=== PATIENT | female | born 1940 | race Caucasian/White ===

== ENCOUNTER 2020-07-14 08:56 | Day surgery (SDC) | payer OTHER, SELFPAY ==
--- NOTE | 2020-07-07 10:55 | PM.PREOP ---
Pre-operative Note COVID-19 COVID-19 status: Negative Interval Note History & Physical reviewed/Exam performed by Physician: Yes Changes to H&P: No H&P completed within 30 days and has changed as indicated here:: Has back pain, difficulty staying in a chair. Stable for surgery.
--- NOTE | 2020-07-14 07:27 | PM.OP.1 ---
Operative Date/Time/Diagnoses Date of procedure: 07/14/20 Time of procedure: 10:45 Procedure & Clinicians Procedure: Preoperative diagnoses: 1. Right significant nuclear sclerotic and cortical cataract. 2.. Asthma 3. Anxiety 4. History of back fractures 5. Astigmatism which she likes to crack the toric intra-ocular lens. Postoperative diagnoses: 1. Cataract removed by phacoemulsification with placement of a toric posterior chamber intraocular lens. Procedure: Phacoemulsification with posterior chamber intraocular lens implant Surgeon: Mayela Carreon MD Complications: None Specimen: None Implant: [id number] [place] 015 Blood loss: None Anesthesia: Retrobulbar with monitored standby Description of procedure: Patient presents with a complaint of decreased vision due to cataract which is affecting activities of daily living especially at distance. The patient wants surgery to improve vision. She understands the extra risk of surgery and the COVID-19 epidemic and wishes to proceed. She was tested active COVID virus negative prior to the procedure. She has difficulty positioning dosing to multiple previous back fractures. The patient was taken to the operating room and indelible ink thayer were placed at the 90 and 180 degree meridian. She was then given IV sedation. A retrobulbar block consisting of 6 cc of 2% xylocaine without epinephrine mixed half and half with 0.5% Marcaine with 1 cc of hyaluronidase added is placed between the medial and lateral 1/3 of the inferior orbital rim. The eye is manually massaged for 30 sec, prepped using Betadine solution, and draped in the usual sterile fashion. Temporal approach was made, a 1 mm side-port incision was made 90? from the proposed clear corneal incision position. Phenylephrine 1.5% mixed with 1% xylocaine 0.2 cc was placed into the anterior chamber. Viscoat followed by Robert was then placed. A 2.6 mm clear incision with a 2.6 mm blade was placed. A 360 degree capsulorrhexis style capsulotomy was then performed with a cystitome needle on a Healon. Hydrodelineation and hydrodissection were performed. The phacoemulsification unit is introduced, and sculpting notice used to groove the central lens. It is then removed in chopping mode. Epi nucleus is removed with epinuclear mode and irrigation aspiration was used to remove the peripheral cortex. The posterior capsule is polished. The intraocular lens is selected, inspected, power confirmed, and placed in the posterior chamber at the desired meridian of 15?. The wound was stromally hydrated and tested for leaks, there was none and it was left sutureless. Vigamox 0.1 cc was placed into the anterior chamber. Kenalog 0.2 cc was placed in the superior subconjunctival space. A drop of antibiotic and was placed and the eye was patched and shielded. The patient was stable and returned to the recovery room in excellent condition. Dictated by: Mayela Carreon MD Copy to: [facility] Same procedure as scheduled: Yes
[2020-07-14 09:21] VITALS: BP 135/74; PULSE 62; RESP 16; TEMP 36.9; O2SAT 96; BMI 26.4
[2020-07-14] MEDS: PROPARACAINE 0.5% OPHTH SOL 2 DROPS EYE-OP (09:38)
[2020-07-14] MEDS: CATARACT EYE COMPOUND (10 DROPS/SYRINGE) 3 DROPS EYE-OP (09:39)
--- NOTE | 2020-07-14 10:12 | SUR.PREOP ---
Patient standing, stretching, moving around. States that she has a broken back and that the back of the wheelchair is too rounded to her comfort. She asked if she could sit in the firm chair and was given permission.
--- NOTE | 2020-07-14 10:15 | SUR.OPER ---
Supine on eye stretcher, head on extension cradle secured with tape. Arms tucked at sides with blanket. Pillow under knees.
[2020-07-14] MEDS: LIDOCAINE 2% 4 ML, BUPIVACAINE 0.5% (PF) 4 ML, HYALURONIDASE 150 UNIT INJ (11:16)
[2020-07-14] MEDS: PHENYLEPHRINE/LIDOCAINE VIAL (OR) 0.2 ML EYE-OP (11:16)
[2020-07-14] MEDS: TRIAMCINOLONE 50 MG/5 ML VIAL INJ (11:18)
[2020-07-14] MEDS: MOXIFLOXACIN INJ 4 MG/0.8 ML VIAL 0.5 MG EYE-OP (11:18)
[2020-07-14] MEDS: BALANCED SALT IRRIG SOLN NO.2 500 ML, EPINEPHrine 1 MG IRR (11:19)
[2020-07-14] MEDS: ERYTHROMYCIN OPHTH 1 GM OINT 1 APPLIC EYE-RIGHT (11:20)
[2020-07-14 11:48] VITALS: BP 141/81; PULSE 57; RESP 14; TEMP 36.8; O2SAT 98
[2020-07-14 12:04] VITALS: BP 140/82; PULSE 65; RESP 16; TEMP 37.1; O2SAT 95
== END 2020-07-14 12:07 | disposition home or self-care (01) ==
LOC: OR 09:03
PROVIDERS: Referring Provider Ophthalmology; Visit Provider Ophthalmology
PROC: (CPT 66984; principal; 2020-07-14 10:45)
DX: H25.811 Combined forms of age-related cataract, right eye (principal); J45.909 Unspecified asthma, uncomplicated; F41.9 Anxiety disorder, unspecified; H52.201 Unspecified astigmatism, right eye
CPT/HCPCS: 66984; J0171; J3301; J3470; V2787

== ENCOUNTER 2021-04-18 09:54 | Day surgery (SDC) | payer MEDICARE, OTHER, SELFPAY ==
--- NOTE | 2021-04-05 19:13 | PM.PREOP ---
Pre-operative Note COVID-19 COVID-19 status: Negative Criteria for continued procedure: Expected advancement of disease process, Possibility delay results in more complex future surgery or treatment, Increased loss of function, Delay expected to result in less-positive ultimate med/surg outcome and Non-surgical alternatives not available or appropriate per current SOC Interval Note History & Physical reviewed/Exam performed by Physician: Yes Changes to H&P: No
--- NOTE | 2021-04-06 08:15 | P.OP_ITS ---
Operative Date/Time/Diagnoses Date of procedure: 04/18/21 Time of procedure: 11:45 Procedure & Clinicians Procedure: Preoperative diagnoses: 1. Significant left cortical and Nuclear sclerotic cataract 2. Astigmatism which is to be corrected with a toric intraocular lens implant. Postoperative diagnoses: 1. Cataract removal with phacoemulsification with toric posterior chamber intraocular lens implant placed. Procedure: Phacoemulsification with posterior chamber toric intraocular lens implant. Surgeon: Mayela Carreon MD Complications: None Specimen: None Implant: [id number] [place] 162. -0.75 target Blood loss: None Anesthesia: Retrobulbar with monitored standby Description of procedure: Patient presents with a complaint of decreased vision due to cataract which is affecting activities of daily living especially night driving. The patient wants surgery to improve vision and astigmatism. To reduce dependency on glasses that she wants her astigmatism corrected as well as a mini mono vision target of -0.75. She has had successful cataract surgery in the right eye with a distance target. This surgery was originally scheduled for <April but was delayed due to the unavailability to obtain needed intraoperative medications. They are currently available and ready to proceed.The patient understands the extra risk of surgery during the COVID-19 epidemic and wishes to proceed. The patient has tested negative for active virus within 72 hours of the procedure. The patient was taken to the operating room and proparacaine drops placed. Indelible ink thayer were placed at the 90 and 180 degree meridian. The patient was placed on the operating room table and given IV sedation. A retrobulbar block insert consisting of 6 cc of 2% xylocaine without epinephrine mixed half and half with 0.5% Marcaine with 1 cc of hyaluronidase added is placed between the medial and lateral 1/3 of the inferior orbital rim. The eye is manually massaged for 30 sec, prepped using Betadine solution, and draped in the usual sterile fashion. Temporal approach was made, a 1 mm side-port incision was made 90? from the proposed corneal wound. Phenylephrine 1.5% mixed with 1% xylocaine 0.2 cc was placed into the anterior chamber. Endocoat followed by Healon was then placed. A 2.6 mm clear incision with a 2.6 mm blade was placed at the 170 degree meridian. A 360 degree capsulorrhexis style capsulotomy was then performed with a cystitome needle on a [place]. Hydrodelineation and hydrodissection were performed. The phacoemulsification unit is introduced, and sculpting used to groove the central lens. It is then removed in chopping mode. Epi nucleus is removed with epinuclear mode and irrigation aspiration was used to remove the peripheral cortex. The posterior capsule is polished. The intraocular lens is selected, inspected, power confirmed, and placed in the posterior chamber at the desired meridian of 162? The pupil was not constricted. The wound was stromally hydrated and tested for leaks, there was none and it was left sutureless. Intracameral moxifloxacin 0.1 cc was placed into the anterior chamber. Kenalog 0.2 cc was placed in the superior subconjunctival space. A drop of antibiotic and was placed and the eye was patched and shielded. The patient was stable and returned to the recovery room in excellent condition. Dictated by: Mayela Carreon MD Copy to: [facility] Same procedure as scheduled: Yes
--- NOTE | 2021-04-06 11:16 | SUR.PREOP ---
Patient called and updated that surgery has been cancellled. Dr Carreon's office will call to reschedule and that she can to the Covid test on admit.
[2021-04-18 10:50] VITALS: BP 157/86; PULSE 65; RESP 18; TEMP 36.3; O2SAT 96; BMI 26.4
[2021-04-18] MEDS: CATARACT EYE COMPOUND (10 DROPS/SYRINGE) 3 DROPS EYE-OP (10:50)
[2021-04-18] MEDS: PROPARACAINE 0.5% OPHTH SOL 2 DROPS EYE-OP (10:55)
[2021-04-18 11:26] LABS: COVID19 -Nasal RAPID Negative (Negative)
[2021-04-18] MEDS: PROPARACAINE 0.5% OPHTH SOL 2 DROPS EYE-LEFT (12:30)
[2021-04-18] MEDS: LIDOCAINE 2% 4 ML, BUPIVACAINE 0.5% (PF) 4 ML, HYALURONIDASE 150 UNIT INJ (12:36)
[2021-04-18] MEDS: ERYTHROMYCIN OPHTH 1 GM OINT 1 APPLIC EYE-LEFT (12:48)
[2021-04-18] MEDS: HYALURONATE SODIUM 30 MG-10 MG/ML SYRINGES 1 BOX INTRAOCULA (12:48)
[2021-04-18] MEDS: MOXIFLOXACIN INJ 4 MG/0.8 ML VIAL 0.5 MG EYE-OP (12:48)
[2021-04-18] MEDS: TRIAMCINOLONE 50 MG/5 ML VIAL INJ (12:49)
[2021-04-18] MEDS: PHENYLEPHRINE/LIDOCAINE VIAL (OR) 0.2 ML EYE-OP (12:49)
[2021-04-18] MEDS: BALANCED SALT IRRIG SOLN NO.2 500 ML, EPINEPHrine 1 MG IRR (12:49)
[2021-04-18 13:31] VITALS: BP 153/77; PULSE 75; RESP 16; TEMP 36.5; O2SAT 97
[2021-04-18 13:46] VITALS: PULSE 68; RESP 14; TEMP 36.6; O2SAT 94
== END 2021-04-18 13:56 | disposition home or self-care (01) ==
LOC: OR 09:56
PROVIDERS: Referring Provider Ophthalmology; Visit Provider Ophthalmology
PROC: (CPT 66984; principal; 2021-04-18 11:45)
DX: H25.812 Combined forms of age-related cataract, left eye (principal); H52.202 Unspecified astigmatism, left eye; Z20.822 Contact with and (suspected) exposure to COVID-19; J45.909 Unspecified asthma, uncomplicated
CPT/HCPCS: 66984; 87635; J0171; J2704; J3301; J3470; V2787